=== PATIENT | male | born 1960 | race Caucasian/White ===

== ENCOUNTER 2018-04-07 17:16 | Emergency (ER) | payer OTHER ==
[~2018-04-07] VITALS: Ht 180.3 cm; Wt 121.6 kg
[2018-04-07] MEDS ORDERED: MICARDIS HCT 81 EACH (17:55)
[2018-04-07] MEDS ORDERED: LIPITOR20 MG (17:55)
[2018-04-07] MEDS ORDERED: ASPIR 8181 MG (17:56)
[2018-04-07] MEDS ORDERED: VITACEL TABLET1 EACH (17:56)
[2018-04-07] MEDS ORDERED: OSTERA TABLET1 EACH (17:56)
[2018-04-07] MEDS ORDERED: MOTRIN IB200 MG (17:57)
== END 2018-04-07 18:24 | disposition home or self-care (01) ==
LOC: ER 17:16
DX: S80.11XA Contusion of right lower leg, initial encounter (principal); W22.8XXA Striking against or struck by other objects, initial encounter; Y93.89 Activity, other specified; Y92.89 Other specified places as the place of occurrence of the external cause; Y99.8 Other external cause status

== ENCOUNTER 2020-06-12 12:40 | Emergency (ER) | payer OTHER ==
[~2020-06-12] VITALS: Ht 177.8 cm; Wt 127.9 kg
[~2020-06-12 12:40] MED LIST: ASPIR 8181 MG; LIPITOR20 MG; MICARDIS HCT 81 EACH; MOTRIN IB200 MG; OSTERA TABLET1 EACH; VITACEL TABLET1 EACH
== END 2020-06-12 18:55 | disposition home or self-care (01) ==
LOC: ER 12:40
DX: R10.32 Left lower quadrant pain (principal); Z20.828 Contact with and (suspected) exposure to other viral communicable diseases